=== PATIENT | male | born 1995 | race Two or more races ===

== ENCOUNTER 2019-07-03 03:46 | Emergency (ER) | payer OTHER ==
[2019-07-03] MEDS ORDERED: ACETAMINOPHEN 325 MG TABLET PO ONE (04:04)
--- NOTE | 2019-07-03 05:09 | RADIOLOGY REPORT (SQ) ---
Left shoulder two view on 07/03/2019 at 4:33 AM Clinical indications: Dislocation, pain COMPARISON: None FINDINGS: There is anterior inferior dislocation of the humeral head in relation to the glenoid consistent with anterior shoulder dislocation. Hill-Sachs deformity is noted in the humeral head. No acute fracture is noted. The AC joint is well aligned. IMPRESSION: Anterior shoulder dislocation. Recommend reimaging after relocation.
[2019-07-03] MEDS ORDERED: MORPHINE SULFATE 10 MG/ML INJ IV ONE (05:45)
[2019-07-03] MEDS ORDERED: MIDAZOLAM 2 MG/2 ML INJ IV ONE ×2 (05:46→06:37)
--- NOTE | 2019-07-03 05:49 | ER Document Report ---
ED Extremity Problem, Upper - General Mode of Arrival: Ambulatory Information source: Patient - Related Data Home Medications: KEPPRA - General Chief Complaint: Shoulder Injury Stated Complaint: POSSIBLE SEIZURE,LEFT SHOULDER INJURY Time Seen by Provider: 07/03/19 05:43 Primary Care Provider: GREGORY CASPER MD [ACTIVE STAFF] - Follow up as needed Notes: 24-year-old male presents to the emergency department history of a seizure tonight and dislocation of his left shoulder. He has had shoulder dislocation in the past. He complains of pain in difficulty moving the shoulder. (SHOBHA DIAZ) - Related Data Allergies/Adverse Reactions: fentanyl Allergy (Verified 07/03/19 03:55) Past Medical History - Social History Smoking Status: Never Smoker Frequency of alcohol use: Social Drug Abuse: None Family History: Reviewed & Not Pertinent Patient has homicidal ideation: No Review of Systems - Review of Systems Notes: Constitutional: Negative for fever. HENT: Negative for sore throat. Eyes: Negative for visual changes. Cardiovascular: Negative for chest pain. Respiratory: Negative for shortness of breath. Gastrointestinal: Negative for abdominal pain, vomiting or diarrhea. Genitourinary: Negative for dysuria. Musculoskeletal: + Left shoulder pain Skin: Negative for rash. Neurological: Negative for headaches, weakness or numbness. 10 point ROS negative except as marked above and in HPI. (SHOBHA DIAZ) Physical Exam - Vital signs Vitals: Temp Pulse Resp BP Pulse Ox 98.6 F 128 H 16 125/85 94 07/03/19 03:54 07/03/19 03:54 07/03/19 03:54 07/03/19 03:54 07/03/19 03:54 - Notes Notes: PHYSICAL EXAMINATION: Physical Exam: General: Well-nourished well-developed 24-year-old male in no acute distress HEENT: NC/AT, pupils equal round and reactive to light, MM moist,nares clear, oropharynx clear, airway patent Neck: supple, no adenopathy, no masses. Good range of motion Lungs: clear, no wheezing, no rales no rhonchi CVS: Regular rate and rhythm no murmur gallop or rub Abdomen: Soft, active, nontender, no masses, no hepatosplenomegaly Ext: Left shoulder with decreased range of motion and defect secondary to dislocation. Neuro: Alert and responsive, moving all 4 extremities on command, cranial nerves intact, no focal findings Skin: Intact no open lesions, no rash PSYCH: Normal mood, normal affect. (SHOBHA DIAZ) Course - Vital Signs Vital signs: Temp Pulse Resp BP Pulse Ox 98.6 F 92 25 H 144/90 H 95 07/03/19 03:56 07/03/19 06:38 07/03/19 09:05 07/03/19 09:05 07/03/19 09:05 Procedures - Conscious Sedation Conscious sedation Time started: 05:50 Time completed: 06:20 Consent obtained: Yes Prior complications: Procedural sedation Emergent conditions applies.: E. - ASA Classification Normal healthy pt.: P1. - ASA Classification Airway Evaluation: Normal anatomy Mallampati Classification: Class 1 Used during procedure: Suction available Medications administered: Versed Reversal agents: None I personally performed/intraservice time: Sedation, 31-45 min Complications: No - Joint Reduction/Fracture Care Left Anterior Shoulder Time completed: 06:40 Consent obtained: Yes Conscious sedation: Yes Pre-procedure NV exam: Yes Manipulation comment: External rotation and abduction of the shoulder, reduction of anterior shou Post-procedure NV exam: Yes Post-reduction x-ray: Joint reduced Reduction attempts: 1 Complications: No Discharge - Discharge Clinical Impression: Seizure disorder Anterior dislocation of left shoulder Qualifiers: Encounter type: initial encounter Qualified Code(s): S43.015A - Anterior dislocation of left humerus, initial encounter Condition: Good Disposition: HOME, SELF-CARE Instructions: Shoulder Dislocation ([facility]), Sling as Treatment ([facility]) Additional Instructions: Seizure, Known Epileptic You have had a seizure. Seizures may "break through" in an epileptic due to stress of infection or injury, a change in blood chemistry, or drug and alcohol use. Another common cause is failure to take medication as prescribed. Your doctor has evaluated your situation for the likely cause of this seizure. It is important that you follow his advice concerning any medication changes and follow-up care. Further testing of anti-seizure medication levels in your blood may be necessary. If you have a package car driver's license, it's important that you DO NOT DRIVE until given permission by your physician. This seizure must be reported to the package car driver's license bureau. Call the doctor or return if seizures recur, or if new or unusual symptoms arise -- such as severe headache, confusion, excessive sleepiness, local weakness or numbness, neck stiffness, or fever. Seizure You have had a seizure. Seizure disorders (epilepsy) of one sort or another affect about one out of 50 people. The seizure occurs because of abnormal electrical activity in the brain. Seizures may be due to drugs and alcohol, strokes, brain injury, or infection. In the most common form of epilepsy, no cause can be found. You will require further evaluation to determine the cause of your seizure, and to determine whether anti-seizure medication is required. This follow-up testing is important, so please call us if you encounter problems with scheduling of tests or appointments. YOU SHOULD NOT DRIVE until released to do so by your physician. The law requires that seizures be reported to the package car driver's license bureau--a seizure while driving could be catastrophic. Call the doctor if seizures recur, or if you develop new symptoms such as fever, severe headache, stiff neck, confusion or increasing sleepiness, weakness or numbness, or visual problems. Prescriptions: Levetiracetam [Keppra] 1,000 mg PO BID #60 tablet Ibuprofen [Motrin 800 mg Tablet] 800 mg PO Q8H PRN #30 tab PRN Reason: Referrals: GREGORY CASPER MD [ACTIVE STAFF] - Follow up as needed
[2019-07-03] MEDS ORDERED: MIDAZOLAM 2 MG/2 ML INJ ONE (06:06)
--- NOTE | 2019-07-03 07:31 | RADIOLOGY REPORT (SQ) ---
Left shoulder two view on 07/03/2019 at 7:10 AM CLINICAL INDICATION: Post reduction COMPARISON: 07/03/2019 at 4:33 AM FINDINGS: There has been successful reduction of the prior anterior shoulder dislocation. The glenohumeral joint now is well located. Large Hill-Sachs deformity is noted in the humeral head. The AC joint is well aligned. No acute fracture is noted. IMPRESSION: Successful reduction of the prior anterior shoulder dislocation. Large Hill-Sachs deformity noted in the humeral head.
[2019-07-03 09:18] VITALS: BP 144/90
[2019-07-03] MEDS ORDERED: LEVETIRACETAM 500 MG TABLET PO SCH (10:00)
== END 2019-07-03 09:18 | disposition home or self-care (01) ==
LOC: ER 03:46
DX: S43.015A Anterior dislocation of left humerus, initial encounter (principal); W19.XXXA Unspecified fall, initial encounter; G40.909 Epilepsy, unspecified, not intractable, without status epilepticus; Z79.899 Other long term (current) drug therapy; Z88.6 Allergy status to analgesic agent; Z88.5 Allergy status to narcotic agent
CPT/HCPCS: 99284; 99153; 99152; 73030; 23650; J2250; J2270

== ENCOUNTER 2019-07-21 16:44 | Emergency (ER) | payer OTHER ==
--- NOTE | 2019-07-21 17:01 | ER Document Report ---
ED General - General Chief Complaint: Shoulder Pain Stated Complaint: SHOULDER PAIN Time Seen by Provider: 07/21/19 17:01 Mode of Arrival: Ambulatory Information source: Patient Notes: Patient is a 24-year-old male presenting to the emergency department chief complaint of right-sided shoulder dislocation. Patient states that it happened about 2 hours prior to presentation. Patient states he was just leaning up against a counter and his arm popped out of socket. Patient states this is about the eighth or 10th time his shoulder is dislocated. Patient does have a prior history of seizure disorder. Patient denies any seizure activity today. Patient denies nausea vomiting diarrhea fevers chills cough or cold symptoms. - HPI Onset: This afternoon Onset/Duration: Sudden Quality of pain: Throbbing Severity: Moderate Pain Level: 3 Associated symptoms: None Exacerbated by: Movement Relieved by: Denies Similar symptoms previously: Yes Recently seen / treated by doctor: No - Related Data Allergies/Adverse Reactions: fentanyl Allergy (Verified 07/03/19 03:55) Past Medical History - General Information source: Patient - Social History Smoking Status: Never Smoker Chew tobacco use (# tins/day): No Frequency of alcohol use: None Drug Abuse: None Family History: Reviewed & Not Pertinent Patient has suicidal ideation: No Patient has homicidal ideation: No Neurological Medical History: Reports: Hx Seizures Surgical Hx: Negative Review of Systems - Review of Systems Notes: REVIEW OF SYSTEMS: CONSTITUTIONAL : Denies fever, chills, or sweats. Denies recent illness. EENT: Denies eye, ear, throat, or mouth pain or symptoms. Denies nasal or sinus congestion. CARDIOVASCULAR: Denies chest pain. RESPIRATORY: Denies cough, cold, or chest congestion. Denies shortness of breath, difficulty breathing, or wheezing. GASTROINTESTINAL: Denies abdominal pain. Denies nausea, vomiting, or diarrhea. Denies constipation. GENITOURINARY: Denies difficulty urinating, painful urination, burning, frequency, or blood in urine. MUSCULOSKELETAL: Per HPI SKIN: Denies rash or skin lesions. HEMATOLOGIC : Denies easy bruising or bleeding. NEUROLOGICAL: Denies altered mental status or loss of consciousness. Denies headache. Denies weakness or paralysis or loss of use of either side. Denies problems with gait or speech. Denies sensory or motor loss. PSYCHIATRIC: Denies suicidal or homicidal ideations 10 Systems are negative unless otherwise specified above Physical Exam - Vital signs Vitals: Temp Pulse Resp BP Pulse Ox 98.6 F 92 16 153/94 H 100 07/21/19 16:50 07/21/19 16:50 07/21/19 16:50 07/21/19 16:50 07/21/19 16:50 - Notes Notes: PHYSICAL EXAMINATION: GENERAL: Well-appearing, well-nourished and in no acute distress. HEAD: Atraumatic, normocephalic. EYES: Pupils equal round and reactive to light, extraocular movements intact, sclera anicteric, conjunctiva are normal. ENT: nares patent, oropharynx clear without exudates. Moist mucous membranes. NECK: Normal range of motion, supple without lymphadenopathy, no appreciable JVD LUNGS: Lungs clear to auscultation bilaterally and equal. No wheezes rales or rhonchi. HEART: Regular rate and rhythm without murmurs ABDOMEN: Soft, nontender, normal bowel sounds. No guarding, no rebound. No masses appreciated. EXTREMITIES: Active full range of motionx3, no pitting or edema. No cyanosis. 2+ pulses x4. 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 NEUROLOGICAL: No focal neurological deficits. Moves all extremities spontaneously and on command. SKIN: Warm, Dry, and intact. Normal turgor, no rashes or lesions noted. Course - Re-evaluation Re-evalutation: 07/21/19 18:03 Patient was consented for closed reduction of right shoulder dislocation. Ultimately patient received 4 mg IV Zofran for nausea management, 1 mg Dilaudid IV for pain management and 170 mg of propofol for sedation. Patient tolerated the procedure well. 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 Patient currently is responding appropriately to questions. 07/21/19 18:46 Patient has been reevaluated several times while in emergency department patient is alert and oriented x3 in no acute distress. Patient does have his arm in a sling and has been given instructions for management of shoulder dislocation. Patient was recommended to follow-up with 1 of the local orthopedists. Patient is stable at time of discharge. - Vital Signs Vital signs: Temp Pulse Resp BP Pulse Ox 98.0 F 87 17 125/88 H 99 07/21/19 16:58 07/21/19 18:00 07/21/19 18:00 07/21/19 18:00 07/21/19 18:00 - Diagnostic Test Radiology reviewed: Image reviewed, Reports reviewed Procedures - Conscious Sedation Conscious sedation Time started: 17:48 Time completed: 17:52 Consent obtained: Yes Indication: Right Shoulder Dislocation Last meal: Lunch time Prior complications: Procedural sedation Normal healthy pt.: P1. - ASA Classification Airway Evaluation: Normal anatomy. No: Large tongue, Loose teeth, Obese Mallampati Classification: Class 1 Used during procedure: Suction available, IV access obtained, Pulse ox on pt., police sergeant on pt. Medications administered: Diprivan I personally performed/intraservice time: Sedation, Procedure Complications: No - Joint Reduction/Fracture Care Right Shoulder Time completed: 17:52 Consent obtained: Yes Conscious sedation: Yes Pre-procedure NV exam: Yes Post-procedure NV exam: Yes Post-reduction x-ray: Joint reduced Reduction attempts: 1 Complications: No Discharge - Discharge Clinical Impression: Shoulder dislocation, recurrent Qualifiers: Laterality: right Qualified Code(s): M24.411 - Recurrent dislocation, right shoulder Condition: Stable Disposition: HOME, SELF-CARE Instructions: Sling as Treatment ([facility]), Shoulder Dislocation ([facility]), Oral Narcotic Medication ([facility]) Additional Instructions: Shoulder Dislocation You've had a shoulder dislocation. Even after the shoulder is put back in place, careful care is needed to prevent further problems. As the shoulder dislocated, injury to the joint itself occurred. This must be allowed to heal. The usual treatment is a shoulder immobilizing sling. If this is your first dislocation, it must be left in place until the doctor allows you to brianda ve it. This is important. Ice pack the shoulder frequently. One of the most important aspects of care for a shoulder dislocation is mobility exercises and strengthening exercises. You'll start these when it's safe to start moving the shoulder joint. Be sure to keep your follow-up appointments. If you develop numbness in the arm or hand, weakness of the hand muscles, arm swelling, or arm discoloration, call the doctor or return immediately. Prescriptions: Hydrocodone/Acetaminophen [[place] 5-325 mg Tablet] 1 tab PO Q6 #14 tablet
[2019-07-21] MEDS ORDERED: NORMAL SALINE 1000 ML 1,000 ML IV ONE (17:10)
[2019-07-21] MEDS ORDERED: HYDROMORPHONE HCL INJ/PF 2 MG/ML AMPULE IV ONE (17:11)
[2019-07-21] MEDS ORDERED: ONDANSETRON HCL INJ/PF 4 MG/2 ML SDV IV ONE (17:11)
[2019-07-21] MEDS ORDERED: PROPOFOL INJ 200 MG/20 ML VIAL IV ONE (17:11)
--- NOTE | 2019-07-21 17:41 | RADIOLOGY REPORT (SQ) ---
EXAM DESCRIPTION: SHOULDER RIGHT 2 OR MORE VIEWS IMAGES COMPLETED DATE/TIME: 07/21/2019 5:32 pm REASON FOR STUDY: pain with movement COMPARISON: None. NUMBER OF VIEWS: Two views. TECHNIQUE: Frontal and lateral images acquired of the right shoulder. LIMITATIONS: None. FINDINGS: MINERALIZATION: Normal. BONES: No acute fracture. No worrisome bone lesions. JOINTS: Anterior dislocation. VISUALIZED LUNGS AND RIBS: No pneumothorax. No rib fracture. SOFT TISSUES: No radiopaque foreign body. OTHER: No other significant finding. IMPRESSION: ANTERIOR DISLOCATION. NO FRACTURE VISUALIZED. TECHNICAL DOCUMENTATION: JOB ID: [id number] 2010 [employer]- All Rights Reserved Reading location - IP/workstation name: [email or web address]
[2019-07-21 18:02] VITALS: BP 125/88
--- NOTE | 2019-07-21 18:16 | RADIOLOGY REPORT (SQ) ---
EXAM DESCRIPTION: SHOULDER RIGHT 1 VIEW IMAGES COMPLETED DATE/TIME: 07/21/2019 6:01 pm REASON FOR STUDY: POST REDUCTION COMPARISON: 07/21/2019. NUMBER OF VIEWS: One view. TECHNIQUE: Frontal post reduction image acquired of the right shoulder. LIMITATIONS: None. FINDINGS: MINERALIZATION: Normal. BONES: No acute fracture. No worrisome bone lesions. JOINTS: No dislocation. VISUALIZED LUNGS AND RIBS: No pneumothorax. No rib fracture. SOFT TISSUES: No radiopaque foreign body. OTHER: No other significant finding. IMPRESSION: POST CLOSED REDUCTION OF THE SHOULDER DISLOCATION. NO FRACTURE VISUALIZED. TECHNICAL DOCUMENTATION: JOB ID: [id number] 2010 [employer]- All Rights Reserved Reading location - IP/workstation name: [email or web address]
[2019-07-21] MEDS ORDERED: HYDROCODONE/ACETAMINOPHEN 5-325 MG (6 TAB/ER DISP) PO PRN (18:52)
== END 2019-07-21 19:14 | disposition home or self-care (01) ==
LOC: ER 16:44
DX: M24.411 Recurrent dislocation, right shoulder (principal); R11.0 Nausea; Z88.6 Allergy status to analgesic agent; Z88.5 Allergy status to narcotic agent
CPT/HCPCS: 99283; 96361; 99152; 96374; 96375; 73020; 73030; 23655; J1170; J2405; J7030; J2704